=== PATIENT | male | born 2000 | race Caucasian/White ===

== ENCOUNTER 2021-03-04 06:14 | Day surgery (SDC) | payer OTHER ==
[~2021-03-04] VITALS: Ht 180.3 cm; Wt 63.5 kg
[2021-03-04] MEDS ORDERED: LIDOCAINE 1% 500 MG/50 ML VIAL ONE (07:49)
[2021-03-04] MEDS ORDERED: HYDROGEN PEROXIDE 3% 240 ML BTL TP ONE (07:49)
[2021-03-04] MEDS ORDERED: BUPIVACAINE-MPF 0.25% 30 ML VIAL INJ ONE (07:49)
[2021-03-04] MEDS ORDERED: fentaNYL citrate 0.05 MG/ML VIAL ONE (08:27)
[2021-03-04] MEDS ORDERED: MIDAZOLAM 2 MG/2 ML VIAL ONE (08:28)
[2021-03-04] MEDS ORDERED: SUCCINYLCHOLINE CHLORIDE 200 MG/10 ML VIAL IVP ONE (08:37)
[2021-03-04] MEDS ORDERED: PROPOFOL 200 MG/20 ML VIAL IV ONE (08:37)
[2021-03-04] MEDS ORDERED: SEVOFLURANE 250 ML BTL INH ONE (08:40)
[2021-03-04] MEDS ORDERED: ONDANSETRON 4 MG/2 ML VIAL ONE (09:02)
[2021-03-04] MEDS ORDERED: DEXAMETHASONE 4 MG/ML VIAL ONE ×2 (09:02→09:24)
[2021-03-04] MEDS ORDERED: MEPERIDINE 50 MG/ML SYR ONE (09:17)
[2021-03-04] MEDS ORDERED: GELATIN SPONGE 100 1 SPG TP ONE (09:28)
[2021-03-04] MEDS ORDERED: diphenhydrAMINE 50 MG/ML VIAL IVP PRN (09:35)
[2021-03-04] MEDS ORDERED: HYDROmorphone 1 MG/ML AMP IVP PRN (09:35)
[2021-03-04] MEDS ORDERED: MEPERIDINE 25 MG/ML SYR IVP PRN (09:35)
[2021-03-04] MEDS ORDERED: ONDANSETRON 4 MG/2 ML VIAL IVP PRN (09:35)
[2021-03-04] MEDS ORDERED: LACTATED RINGERS 1,000 ML IV SCH (09:35)
[2021-03-04] MEDS ORDERED: HYDROmorphone 1 MG/ML AMP IVP ONE ×3 (10:30→12:45)
[2021-03-04] MEDS ORDERED: ONDANSETRON 4 MG/2 ML VIAL IVP ONE (12:27)
--- NOTE | 2021-03-04 15:45 | NUR ---
RECEIVED BEDSIDE REPORT FROM ED NURSE. PATIENT FOUND LAYING DOWN SUPINE IN BED. AWAKE AND ALERT, ABLE TO MAKE NEEDS KNOWN. R WRIST 20G PATENT, SL. PATIENT ORIENTED TO ROOM AND UNIT. PROVIDED CALL LIGHT WITHIN REACH, SAFETY MEASURES IN PLACE. ADMIT VITALS: SPO2 98% ON RA, ME 68, RR 20, BP 137/85. BREATHING EVEN AND UNLABORED NO SIGNS OF ACUTE DISTRESS NOTED.
--- NOTE | 2021-03-04 19:50 | NUR ---
RECEIVED BEDSIDE ENDORSEMENT FROM AM SHIFT RN. PATIENT IS AAOX4, ON ROOM AIR, IVF INFUSING, NO DISTRESS, AMBULATORY, AM NURSE SPOKE TO THE PATIENT'S MOTHER ON THE CELLPHONE, SAFETY MEASURES IN PLACE, WILL DO D/C PAPER, CALL LIGHT WITHIN REACH.
[2021-03-04 20:00] VITALS: BP 121/71
--- NOTE | 2021-03-04 20:14 | NUR ---
D/C PAPERS GIVEN TO PATIENT, ANSWERED ALL QUESTIONS, ALL PERSONAL BELONGINGS GIVEN TO PATIENT, NO DISTRESS, D/C PAPERS SIGNED, IV CATH REMOVED, ID BAND REMOVED, WAITING FOR TRANSPORT. CALL LIGHT WITHIN REACH.
--- NOTE | 2021-03-04 21:00 | NUR ---
PATIENT WAS D/C, VACCINES UTD, AMBULATORY, STABLE, NO DISTRESS, ACCOMPANIED BY MY CHARGE NURSE OUTSIDE THE BUILDING.
== END 2021-03-04 21:05 | disposition home or self-care (01) ==
LOC: MDS 06:14 → MMU 06:17 → MTU 15:30 → MDS 21:05
PROVIDERS: ATTEND Surgery
DX: A51.31 Condyloma latum (principal); I10 Essential (primary) hypertension; Z79.899 Other long term (current) drug therapy
CPT/HCPCS: 46924; 71045; G0378; J0330; J1100; J1170; J2001; J2175; J2250; J2405; J2704; J3010; J3490; J7120; 88305